=== PATIENT | male | born 1960 | race Caucasian/White ===

== ENCOUNTER 2021-07-08 09:32 | Day surgery (SDC) | payer OTHER, SELFPAY ==
--- NOTE | 2021-07-07 10:27 | EKG12_ITS ---
Test Reason : PRE-OP Blood Pressure : / mmHG Vent. Rate : 063 BPM Atrial Rate : 063 BPM P-R Int : 180 ms QRS Dur : 098 ms QT Int : 386 ms P-R-T Axes : 072 049 070 degrees QTc Int : 395 ms Normal sinus rhythm Septal infarct , age undetermined Abnormal ECG Confirmed by NEL SIMS, SASHA ([id number]), editor managing director XIOMARA GIBBS ([id number]) on 07/11/2021 9:43:59 AM Referred By: Oni Car Confirmed By:SILVIA NEUMANN MD
[2021-07-08] VITALS (11 sets, daily range): BP systolic 111–142; BP diastolic 77–95; PULSE 60–88; RESP 14–16; TEMP 36.1–36.6; O2SAT 94–100; BMI 23.8
[2021-07-08] MEDS: Lactated Ringers 1,000 ML 15 ML IV ×3 (09:30→12:35)
--- NOTE | 2021-07-08 09:40 | PCM.HP.BLA ---
History and Physical Date of Admission: 07/08/21 Intake Vital Signs 06/27/21 09:38 Height 5 ft 11 in BP 150/83 H Blood Pressure Location Rt brachial Position Sitting Respiration 18 Intake Visit Reasons: INGUINAL HERNIA / WORKERS COMP Chief Complaint: [facility] Underliner Required: No Is patient in pain?: Yes (right groin ) Allergies No Known Allergies Allergy (Unverified 06/27/21 09:42) Medications cholecalciferol (vitamin D3) 25 mcg (1,000 unit) capsule 25 mcg PO DAILY 06/27/21 [History Confirmed 06/27/21] vitamin K2 100 mcg capsule 100 mcg PO DAILY 06/27/21 [History Confirmed 06/27/21] PFSH Surgical History (Updated 06/27/21 @ 09:37 by Fatimah Pink) H/O detached retina repair Family History (Updated 06/27/21 @ 09:38 by Fatimah Pink) Brother Heart disease CAD (coronary artery disease) Father Hypertension Mother CAD (coronary artery disease) Social History (Updated 06/27/21 @ 09:38 by Fatimah Pink) Smoking Status: Never smoker alcohol intake: current alcohol intake frequency: a few times a month HPI HPI HPI: MARCELA LONDON, is a 60 M who presents to the office today for painful groin swelling of the right groin. Patient reports this happened early in May at work when he was lifting something heavy and he felt a large painful bulge in the right groin. Patient does not report any nausea or vomiting. No radiation of pain. It hurts to lift or do any strenuous currently. ROS General General: No weight change, appetite, fatigue, colon cancer, breast cancer or weakness HEENT HEENT: Yes eye injury and eye surgery; No difficulty swallowing, swollen glands or hoarseness Endo Endocrine: No thyroid disease, diabetes mellitus, thyroid cancer, Hair loss, heat intolerance or cold intolerance Skin Skin: No rash or changing moles Breast Breast: No left breast lump, right breast lump, nipple discharge, breast pain, abnormal mammogram, abnormal US or breast enlargement Musc Musculoskeletal: Yes back problems and arthritis; No rheumatoid arthritis, gout or joint pain Cardio Cardiovascular: No murmur, pacemaker, heart disease, atrial fibrillation, high blood pressure, heart attack, heart stent, palpitations, shortness of breat with exertion or chest pain Psych Psychiatric: No depression, anxiety or hearing voices Resp Respiratory: No shortness of breath, No sleep apnea, No cough, No COPD, No asthma, No emphysema and No wheezing Gastro Gastrointestinal: No abdominal pain, No nausea or vomiting, No diarrhea, No constipation, No blood in stool, Yes acid reflux, No hemorrhoids, No ulcers, No gallbladder problem and No black,tarry stools José Miguel Hematologic: No blood thinners, No blood disorders, No bleeding, No anemia and No blood clots Neuro Neurologic: No system reviewed and no additional complaints, except as documented, No as per HPI, No abnormal gait, No abnormal hearing, No abnormal movements, No abnormal speech, No behavioral changes, No burning sensations, No confusion, No convulsions, No disequilibrium, No dizziness, No localized weakness, No frequent falls, No headache(s), No lack of coordination, No loss of vision, No memory loss, No numbness, No other visual disturbances, No radicular pain, No restless legs, No sensory deficit, No syncope, No tingling, No tremor(s), No weakness and No other Exam Const General: cooperative Orientation: alert and oriented x3 HENCA Head: normal to inspection Neck Neck: normal visual inspection and full ROM Chest Chest palpation & inspection: normal inspection of the chest Resp Effort & Inspection: normal respiratory effort Auscultation: clear to auscultation bilaterally Cardio Rate: regular rate Rhythm: regular rhythm GI Inspection: non-distended Palpation: soft, hernia indirect inguinal on the right and nontender Skin General: no rashes or lesions noted Neuro General: patient alert and patient oriented x3 Extrem General: full ROM Psych Appearance: grossly normal Mental Status: mental status grossly normal Assessment and Plan Assessment and Plan (1) Right inguinal hernia: Status: Acute Plan - Dr. Oni Car MD: Patient has a right inguinal hernia which is symptomatic which occurred at work. He would like this repaired. I discussed robotic assisted laparoscopic inguinal hernia repair with mesh with him. I discussed the procedure in detail as well as the risks including not limited to bleeding, infection, injury to other organs such as the spermatic cord, bowel, nerves. Patient understands the risks and is when to proceed once we get approval from Worker's Compensation. Oni Car MD Pager: [facility] [address] [place] [address], [address] [place] [address] Office: I have re-examined the patient. There are no clinical changes since date of exam.
[2021-07-08] MEDS: Cefazolin 2 GM in 0.9% Normal Saline 100 ML IV (10:52)
--- NOTE | 2021-07-08 11:51 | PCM.OPRPT ---
Problems Associated Problem List Diagnoses (1) Right inguinal hernia: Report of Operation Date of Procedure: 07/08/21 Pre-Operative Diagnosis: Right inguinal hernia Post-Operative Diagnosis: Right inguinal hernia Surgery/Procedure Performed:: Robotic assisted laparoscopic right inguinal hernia repair with mesh Description of Procedure: Patient was brought back to the operating room and general anesthesia was induced. The abdomen was prepped and draped in usual sterile fashion. A midline incision was made superior the umbilicus and deepened to the fascia which was elevated and a Veress needle was placed into the abdomen. The drop test was performed and then the abdomen was insufflated 15 mmHg the. The Veress needle was removed and a camera ports placed into the abdomen. The camera was placed into the abdomen and it was inspected and there were no injuries from entry. Next the inguinal regions were inspected and the patient was placed in Trendelenburg position. The patient had only a right inguinal hernia. Under direct visualization a left lateral and right lateral 8 mm port were placed. The robot was then docked. Using electrocautery scissors dissection was started at the right lower quadrant and peritoneum was dissected free inferiorly until the hernia sac was encountered and reduced. Dissection was carried posteriorly until there was large enough overlap of the mesh. Next progrip mesh was placed in the right groin and unfolded and placed over the hernia defect. There is good coverage on all sides. The peritoneum was then reapproximated using running 3-0V lock suture. There was good coverage of the mesh with peritoneum at the end of the case and there was good hemostasis. Next the abdomen was allowed to desufflate and the robot was undocked. The scrotum was checked and contain both testicles and the air was removed from the scrotum with pressure. Next the incisions were injected with local anesthetic and closed with interrupted 4-0 Monocryl suture and Steri-Strips and bandages were applied. Scrotum was once again checked at the end of the case and contain both testicles. Patient was awoken and taken to PACU stable condition tolerated the procedure well. Grafts/Implants Used: ProGrip mesh in the right groin Admit VTE Documentation VTE Mechan Device Prophylaxis: SCD's
[2021-07-08] MEDS: Bupivacaine Mpf 0.5% 30 ML VIAL (11:52)
--- NOTE | 2021-07-08 11:53 | DCINST_ITS ---
Discharge Instructions Procedure Hernia Diet Discharge Diet: Light diet - advance as tolerated Activity Discharge Activity: May Not Drive (for 2-3 days or while taking narcotic pain meds.) and May Shower (with the bandage in place 1-2 days after surgery.) Lifting Restrictions: 20 pounds for 4-6 weeks. Additional Activity Instructions:: Climbing stairs is fine, walking is encouraged. Sitting in bed may be uncomfortable. Sitting up using your lateral muscles (sitting up sideways) is usually more comfortable. Do not drive, work heavy equipment of sign legal documents for 24 hours. If your hernia repair was an ingunial repair, you may have scrotal swelling, an ice pack and/or athletic support can provide more comfort. Pain medications may cause nausea, you should typically eat light foods as you take your pain medications. Pain medications may also cause constipation. If you have difficulty with this, discuss with your doctor. Dressing / Incision Call your doctor if your incision/area has: Continuous Slow Oozing, Sudden Increased Bleeding, Increased Pain/ Swelling, Increased Redness and Foul Smelling Discharge Call your doctor if you observe: Fever of 101 or Higher Suture Line Care: Avoid Pulling/Pushing and Avoid Pinching/Bending Cleanse incision/area with: Soap & Water Follow Up Care Please Follow Up With: Oni Car MD When: Please call to schedule follow up appointment. [phone] Test Results: Test results from this visit will be discussed in further detail at your follow-up appointment, if applicable. Discharge Plan Admission Attending Provider: Oni Car Primary Care Provider: Humphrey Ellis Discharge Orders/Prescriptions Prescriptions: New oxycodone-acetaminophen [Percocet] 5-325 mg tablet 1 tab PO Q6H PRN (Reason: pain) 5 Days Qty: 14 RF: 0 No Action cholecalciferol (vitamin D3) 25 mcg (1,000 unit) capsule 25 mcg PO DAILY RF: 0 vitamin K2 100 mcg capsule 100 mcg PO DAILY RF: 0 [place] 3 Fish Oil Capsule 1,000 mg PO DAILY RF: 0 Other Ambulatory Orders: 12 Lead EKG (Routine) Timeframe: [id number] Location: None Selected Ordered By: Dr. Clint Mcclain Referrals / Follow Up: Humphrey Ellis MD [Primary Care Provider] - Disposition Disposition (needs filled in before D/C Order can be placed): Home, Self Care
== END 2021-07-08 16:10 | disposition home or self-care (01) ==
LOC: SDC 09:34 → AC 09:36
PROVIDERS: PCP Family Medicine; Referring Provider Surgery; Visit Provider Surgery
PROC: (CPT 49650; principal; 2021-07-08 10:40)
DX: K40.90 Unilateral inguinal hernia, without obstruction or gangrene, not specified as recurrent (principal); K21.9 Gastro-esophageal reflux disease without esophagitis; M19.90 Unspecified osteoarthritis, unspecified site
CPT/HCPCS: 00840; 49650; S2900; 93005; J7120; J2405